=== PATIENT | male | born 2000 | race Caucasian/White ===

== ENCOUNTER 2018-01-01 18:46 | Emergency (ER) | payer OTHER, SELFPAY ==
--- NOTE | 2018-01-01 20:18 | RAD ---
RADIOGRAPH CHEST 1 VIEW: HISTORY: A 17-year-old male with cough. FINDINGS: The visualized lung sellers are clear. The cardiomediastinal silhouette and hilar shadows are normal. The lateral costophrenic angles are sharp. The osseous structures appear normal. There is no pneu mothorax. IMPRESSION: Negative. low [] POS: [facility]
[2018-01-01] MEDS ORDERED: predniSONE 20 MG TAB ONE (20:22)
== END 2018-01-01 20:40 | disposition home or self-care (01) ==
LOC: MADERS 18:46
DX: J18.9 Pneumonia, unspecified organism (principal); F31.9 Bipolar disorder, unspecified; F41.9 Anxiety disorder, unspecified; F90.9 Attention-deficit hyperactivity disorder, unspecified type; F17.210 Nicotine dependence, cigarettes, uncomplicated
CPT/HCPCS: 71045; J7506

== ENCOUNTER 2018-07-31 11:14 | Emergency (ER) | payer SELFPAY | END 2018-07-31 11:30 | disposition home or self-care (01) | LOC: MADERS 11:14 | DX: J11.1 Influenza due to unidentified influenza virus with other respiratory manifestations (principal); F41.9 Anxiety disorder, unspecified; F31.9 Bipolar disorder, unspecified; F90.9 Attention-deficit hyperactivity disorder, unspecified type; F17.210 Nicotine dependence, cigarettes, uncomplicated | CPT/HCPCS: 87081; 87430; 99283 ==

== ENCOUNTER 2018-11-13 13:12 | Emergency (ER) | payer SELFPAY ==
[2018-11-13] MEDS ORDERED: Bacitracin 1 PK ONE (14:26)
[2018-11-13] MEDS ORDERED: Adacel (T-DAP) 0.5 ML SYRINGE ONE (14:26)
== END 2018-11-13 14:36 | disposition home or self-care (01) ==
LOC: MADERS 13:12
DX: S60.511A Abrasion of right hand, initial encounter (principal); F41.9 Anxiety disorder, unspecified; F31.9 Bipolar disorder, unspecified; F90.9 Attention-deficit hyperactivity disorder, unspecified type; F17.210 Nicotine dependence, cigarettes, uncomplicated; V29.9XXA Motorcycle rider (driver) (passenger) injured in unspecified traffic accident, initial encounter
CPT/HCPCS: 90471; 90715

== ENCOUNTER 2019-02-13 20:49 | Emergency (ER) | payer OTHER, SELFPAY ==
[2019-02-13] MEDS ORDERED: Cephalexin 500 MG CAP ONE (21:42)
[2019-02-13] MEDS ORDERED: Sulfameth/Trimethoprim DS 800-160mg TAB ONE (21:42)
[2019-02-13] MEDS ORDERED: Ibuprofen 600 MG TAB ONE (22:07)
--- NOTE | 2019-02-13 22:28 | RAD ---
XR Tib Fib Lt Leg 2 View: 02/13/2019 9:36 PM CLINICAL INDICATION: Abscess, injury COMPARISON: None. FINDINGS: Fracture:No fracture. Arthropathy:None of significance. Incidental findings:Sclerotic focus of calcaneus which may relate to a bone island Increased density and prominence of soft tissues of the left leg indicates edema. IMPRESSION: 1. No acute osseous abnormality. 2. Soft tissue edema. Correlate clinically.
[2019-02-13] MEDS ORDERED: Clindamycin 150 MG CAP ONE (22:46)
== END 2019-02-13 23:00 | disposition home or self-care (01) ==
LOC: MADERS 20:49
DX: L03.116 Cellulitis of left lower limb (principal); F41.9 Anxiety disorder, unspecified; F31.9 Bipolar disorder, unspecified; F90.9 Attention-deficit hyperactivity disorder, unspecified type; F17.210 Nicotine dependence, cigarettes, uncomplicated

== ENCOUNTER 2019-07-30 20:18 | Emergency (ER) | payer SELFPAY ==
[2019-07-30] MEDS ORDERED: Ondansetron ODT 4 MG TAB ONE (21:02)
[2019-07-30] MEDS ORDERED: Acetaminophen 500 MG TAB ONE (21:17)
[2019-07-30] MEDS ORDERED: Ibuprofen 800 MG TAB ONE (21:17)
== END 2019-07-30 21:53 | disposition home or self-care (01) ==
LOC: MADERS 20:18
DX: J11.1 Influenza due to unidentified influenza virus with other respiratory manifestations (principal); R11.2 Nausea with vomiting, unspecified; F41.9 Anxiety disorder, unspecified; F31.9 Bipolar disorder, unspecified; F90.9 Attention-deficit hyperactivity disorder, unspecified type; F17.290 Nicotine dependence, other tobacco product, uncomplicated; F17.210 Nicotine dependence, cigarettes, uncomplicated
CPT/HCPCS: 99283; Q0162